=== PATIENT | male | born 2000 | race Caucasian/White ===

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

== ENCOUNTER 2022-02-12 10:14 | Emergency (ER) | payer OTHER ==
[2022-02-12] MEDS ORDERED: Sodium Chloride 0.9% 2.5 ML Syringe FLUSH PRN (10:23)
[2022-02-12] MEDS ORDERED: Sodium Chloride 0.9% 10 ML Syringe FLUSH PRN (10:23)
[2022-02-12] MEDS ORDERED: Sodium Chloride 0.9% 1,000 ML IV ONE (10:26)
[2022-02-12] MEDS ORDERED: Morphine 4 MG/ML VIAL IVPUSH ONE (10:26)
[2022-02-12 11:10] LABS: BLOOD UREA NITROGEN,BUN 8 mg/dL (7.0-18.0); CARBON DIOXIDE,CO2 25.4 mmol/L (21.0-32.0); CHLORIDE,CL 105 mmol/L (98-107); GLUCOSE RANDOM 98 mg/dL (74-106); POTASSIUM,K 3.7 mmol/L (3.5-5.1); SODIUM,NA 142 mmol/L (136-148)
[2022-02-12 11:18] LABS: ESTIMATED GFR 126 mL/min (>60)
[2022-02-12] MEDS ORDERED: Acetaminophen 500 MG Tab PO ONE (14:17)
[2022-02-12] MEDS ORDERED: Ibuprofen 600 MG Tab PO ONE (14:17)
[2022-02-12] MEDS ORDERED: Iopamidol 755 MG/ML 500 ML Multipack Bottle IVPUSH STA (15:05)
== END 2022-02-12 14:42 | disposition home or self-care (01) ==
LOC: MW.ED 10:14
DX: S46.912A Strain of unspecified muscle, fascia and tendon at shoulder and upper arm level, left arm, initial encounter (principal); Z79.899 Other long term (current) drug therapy; Z20.822 Contact with and (suspected) exposure to COVID-19; V53.5XXA Driver of pick-up truck or van injured in collision with car, pick-up truck or van in traffic accident, initial encounter; Y92.410 Unspecified street and highway as the place of occurrence of the external cause
CPT/HCPCS: 36415; 71045; 71275; 72125; 72130; 72131; 73030; 73060; 73070; 74177; 80053; 80305; 80307; 81003; 85025; 85610; 87635; 96361; 96374; 99284; A9270; J2270; J3490; J7030; Q9967; 99285; U0002

== ENCOUNTER 2023-09-16 14:36 | Emergency (ER) | payer SELFPAY | END 2023-09-16 15:04 | disposition home or self-care (01) | LOC: MW.ED 14:36 | DX: K04.7 Periapical abscess without sinus (principal); F17.210 Nicotine dependence, cigarettes, uncomplicated; Z86.16 Personal history of COVID-19 | CPT/HCPCS: 99282; 99283 ==